=== PATIENT | female | born 1985 | race Two or more races ===

== ENCOUNTER 2022-07-07 19:10 | Emergency (ER) | payer OTHER ==
[~2022-07-07] VITALS: Ht 165.1 cm; Wt 63.6 kg
[2022-07-07] MEDS ORDERED: IV NORMAL SALINE 1000 ML BAG IV ONE (19:15)
[2022-07-07 19:39] LABS: HEMATOCRIT 34.3 % (31.2-41.9); MEAN CORPUSCULAR HEMOGLOBIN 30.4 uug (24.7-32.8); MEAN CORPUSCULAR VOLUME 91.1 fL (75.5-95.3); PLATELET COUNT (AUTO) 292 K/uL (179-408)
[2022-07-07 19:55] LABS: CARBON DIOXIDE 18 mmol/L (21-32); CHLORIDE 100 mmol/L (98-107); CREATININE 1.1 mg/dL (0.6-1.3); GLUCOSE 172 mg/dL (74-106); POTASSIUM 3.5 mmol/L (3.5-5.1); UREA NITROGEN, BLOOD 12 mg/dL (7-18)
[2022-07-07 20:00] LABS: ALANINE AMINOTRANSFERASE 27 U/L (14-59); ALKALINE PHOSPHATASE 63 U/L (50-136); ASPARTATE AMINOTRANSFERASE 33 U/L (15-37); BILIRUBIN,DIRECT 0.1 mg/dL (0.0-0.2); BILIRUBIN,TOTAL 0.3 mg/dL (0.2-1.0); TOTAL PROTEIN, SERUM 7.6 g/dL (6.4-8.2)
[2022-07-07 20:01] LABS: ETHANOL 5 MG/DL (0-0)
--- NOTE | 2022-07-07 20:10 | NUR ---
Patient awake, able to answer question and was able to give urine via bed brennan.
[2022-07-07 20:12] LABS: *BILIRUBIN,URIN NEGATIVE (NEGATIVE); *COLOR,URINE YELLOW (YELLOW); *KETONES,URINE NEGATIVE (NEGATIVE); *UROBILINOGEN,URINE 0.2 E.U./dl (NORMAL); LEUKOCYTE ESTERASE ,URINE NEGATIVE (NEGATIVE); NITRITE, URINE NEGATIVE (NEGATIVE); PH,URINE 5.5 (5.0-8.0); UGLUCOSE NEGATIVE (NEGATIVE)
[2022-07-07 20:15] LABS: ACETAMINOPHEN < 10.0 ug/mL (10-30)
[2022-07-07 20:22] LABS: *AMPHETAMINE, URINE POSITIVE (NEGATIVE); *CANNABINOID, URINE NEGATIVE (NEGATIVE); *COCCAINE, URINE NEGATIVE (NEGATIVE); *OPIATE, URINE NEGATIVE (NEGATIVE); *PHENCYCLIDINE SCREEN,URINE NEGATIVE (NEGATIVE)
--- NOTE | 2022-07-07 20:35 | NUR ---
Patient out of unit for ct scan via g[facility]
[2022-07-07 20:50] LABS: *BLOOD, URINE TRACE (NEGATIVE); *CLARITY,URINE SLIGHTLY CLOUDY (CLEAR)
--- NOTE | 2022-07-07 20:50 | NUR ---
Patient back from ct scan with no distress noted. Patient A/Ox3.
[2022-07-07 21:06] LABS: BACTERIA,URINE MANY /HPF (NONE SEEN); SQUAMOUS EPITHELIAL CELL,UR MODERATE /HPF (NONE SEEN); WBC,URINE 0-3 /HPF (0-3)
[2022-07-07] MEDS ORDERED: IV NS 1000 ML 1,000 ML IV ONE ×2 (21:15)
--- NOTE | 2022-07-07 21:22 | NUR ---
Pt refused lumbar puncture, made aware.
--- NOTE | 2022-07-08 02:00 | NUR ---
pt continues to rest in bed, arousable to voice. pts has friend/ family at bedside. pt alert and oriented able to answer all questions appropriately, albeit a bit slow. pt has intervenous saline infusing through left antecubital. pt on cardiac, pulse ox and blood pressure, vitals WNL. pt updated as to plan of care, understanding verbalised "Crisis Team" member, Riley contacted and advised, pt was medically cleared and in need of evaluation. Riley sts ETA approximately 1 hour
--- NOTE | 2022-07-08 04:20 | NUR ---
"Crisis Team" at bedside to evaluate pts mental health as requested by MD. per oncology social work, pt denies all criteria that would indicate a need for more comprehensive mental health care such as homicidal and suicidal ideation and hallucinations both auditory and visual. pt Riley from crisis team, he feels there in no need to hold her and prending approval of MD, is cleared for D/C. pt and son made aware plan of care, all questions answered, NAD noted
[2022-07-08 04:55] VITALS: BP 117/71
[2022-07-10 12:06] LABS: CRYPTOCOCCUS AB, SERUM Negative (Negative)
== END 2022-07-08 05:00 | disposition home or self-care (01) ==
LOC: ER 19:10
DX: R40.4 Transient alteration of awareness (principal); R51.9 Headache, unspecified; R10.10 Upper abdominal pain, unspecified; Z20.822 Contact with and (suspected) exposure to COVID-19
CPT/HCPCS: 80076; 80048; 81001; 82140; 85025; 87426; 87040; 36415; 93005; 71045; 70450; 99285; 96360; 96361 ×2; 83605 ×2; 80299; 80320; 80307; 87328; J7040 ×2; A4663; G0480